=== PATIENT | female | born 1945 | race Caucasian/White ===

== ENCOUNTER → 2018-06-29 | Outpatient (CLI) | payer MEDICARE | LOC: M WHC 08:45 | DX: Z12.31 Encounter for screening mammogram for malignant neoplasm of breast (principal); Z78.0 Asymptomatic menopausal state | CPT/HCPCS: 77067 ==

== ENCOUNTER → 2019-07-02 | Outpatient (CLI) | payer MEDICARE ==
[2019-07-02 12:24] LABS: BLOOD UREA NITROGEN 18 MG/DL (7-18); CALCIUM LEVEL 9.4 MG/DL (8.8-10.2); CARBON DIOXIDE LEVEL 28 MEQ/L (21-32); CHLORIDE LEVEL 107 MEQ/L (98-107); CREATININE FOR GFR 0.76 MG/DL (0.55-1.30); GLOMERULAR FILTRATION RATE > 60.0 (>39); GLUCOSE, FASTING 84 MG/DL (70-100); POTASSIUM SERUM 4.4 MEQ/L (3.5-5.1); SODIUM LEVEL 140 MEQ/L (136-145)
== END ==
LOC: M LAB 10:23
PROVIDERS: ATTEND Orthopaedic Surgery
DX: G56.01 Carpal tunnel syndrome, right upper limb (principal)

== ENCOUNTER → 2019-11-01 | Outpatient (REF) | payer MEDICARE | LOC: M LAB REF 16:21 | PROVIDERS: ATTEND Nurse Practitioner Family | DX: R30.0 Dysuria (principal) ==

== ENCOUNTER → 2020-06-19 | Outpatient (CLI) | payer MEDICARE ==
--- NOTE | 2020-06-24 07:50 | REP ---
BILATERAL SCREENING MAMMOGRAM WITH 3D TOMOSYNTHESIS COMPARISON MAMMOGRAM: 06/29/2018, as well as other prior exams. HISTORY: No family history of breast cancer. Tyrer-Cuzick lifetime risk of breast cancer 2.1%. TECHNIQUE: MLO and CC views of both breast performed with tomosynthesis. FINDINGS: There is mild heterogeneous fibroglandular tissue again seen bilaterally. Volpara breast density is B. Intramammary lymph node is again seen in the upper outer quadrant of the left breast postoperatively. New irregular nodular density is seen in the region of the left axillary tail on the MLO view with adjacent linear ductal type calcifications, which are also new. Otherwise, no new mass or clustered microcalcifications are seen bilaterally. IMPRESSION: ACR 0 incomplete. New irregular 7 mm nodular density in the region of the left axillary tail with adjacent linear ductal calcifications, which are also new. These are only seen on the MLO projection. Recommend spot compression magnification views of the left breast in the axillary, CC, MLO, and ML projects. This mammogram was interpreted with the aid of an FDA approved computer-aided detection system. The patient states her last clinical breast exam was over one year ago. Patient letter: 0. MTDD
== END ==
LOC: M WHC 09:08
PROVIDERS: ATTEND Internal Medicine
DX: Z12.31 Encounter for screening mammogram for malignant neoplasm of breast (principal); N63.32 Unspecified lump in axillary tail of the left breast

== ENCOUNTER → 2020-07-14 | Outpatient (CLI) | payer MEDICARE ==
--- NOTE | 2020-07-14 16:50 | REP ---
INDICATION: ADDITIONAL VIEWS LT BREAST. COMPARISON: 06/19/2020. TECHNIQUE: Spot compression magnification views of the left breast are performed in the posterior upper outer quadrant. Focused left breast ultrasound also performed at that location. FINDINGS: An irregular nodule is confirmed in the upper-outer quadrant of left breast posteriorly, in the region of the axillary tail. Approximate diameter 7 mm. There adjacent suspicious pleomorphic ductal type calcifications extending superior and lateral from the irregular nodule. These calcifications are also suspicious. Ultrasound of the left axillary tail region approximately 10 cm from the nipple, at 1 o'clock, demonstrates a hypoechoic nodule with distal Q 6 shadowing measuring 5 mm in diameter. This is felt to correspond to the mammographic abnormality. IMPRESSION: BIRADS/ACR category 4 suspicious. Irregular nodule confirmed in the left axillary tail region approximately 10 cm from the nipple, both mammographically and sonographically. By mammography there also adjacent pleomorphic ductal type calcifications extending superior and lateral to the nodule. Recommend ultrasound-guided biopsy of the nodule, with samples also obtained of the adjacent soft tissue just superolateral to the nodule. Recommend postprocedure mammogram. Recommend postprocedure specimen radiograph to determine if calcifications are also sampled during the ultrasound-guided biopsy. This mammogram was interpreted with the aid of an FDA-approved computer-aided detection system. The patient letter being requested is M4. RECOMMENDATION: Recommend ultrasound-guided biopsy left breast. <Electronically signed by Isai Santos > 07/14/20 [id number]
== END ==
LOC: M WHC 14:52
PROVIDERS: ATTEND Internal Medicine
DX: Z12.39 Encounter for other screening for malignant neoplasm of breast (principal); N64.0 Fissure and fistula of nipple

== ENCOUNTER → 2020-08-21 | Outpatient (CLI) | payer MEDICARE ==
[~2020-08-21] MED LIST: AMLO25TA PO; CALCTAB41 PO; CENT1TAB PO; DERM1TAB2 PO
--- NOTE | 2020-08-21 16:44 | REP ---
INDICATION: R952.8 ABN MAMMOGRAM,US GUIDED BIOPSY. COMPARISON: 06/19/2020 and 07/14/2020. TECHNIQUE: Specimen radiograph performed. FINDINGS: Following ultrasound-guided biopsy of a nodule and adjacent microcalcifications in the upper-outer quadrant of the left breast a specimen area graft shows it least 4 calcifications within the specimens. IMPRESSION: Successful ultrasound-guided biopsy of irregular nodule and adjacent ductal type calcifications in the upper outer quadrant of the left breast. RECOMMENDATION: Clinical follow-up. <Electronically signed by Isai Santos > 08/21/20 1640
--- NOTE | 2020-08-21 16:51 | REP ---
INDICATION: R952.8 ABN MAMMOGRAM LT BREAST,US GUIDED BIOPSY. COMPARISON: None. TECHNIQUE: The procedure was performed under the general supervision of Dr. Santos. The patient has a history of an irregular nodule in the left axillary tail region approximately 10 cm from the nipple seen on a previous ultrasound dated 07/14/2020. Mammogram performed on the same day demonstrates pleomorphic ductal type calcifications extending superior and lateral to the nodule. The risks and benefits of the procedure were explained to the patient and informed consent was obtained. The left breast nodule was localized using ultrasound guidance. The skin was prepped and draped in a sterile fashion. 1% lidocaine was used as a local anesthetic. Using ultrasound guidance a 14 gauge coaxial needle biopsy system was inserted and 5 core biopsy samples were obtained in the tissue superior and lateral to the nodule. Specimen radiograph demonstrates the presence of calcifications to be within the specimen. Six core biopsy samples were then obtained of the nodule. A marker clip was placed at the biopsy site. The patient tolerated the procedure well and there were no immediate complications. After the appropriate amount to monitor convalescence the patient was discharged from the department. FINDINGS: None IMPRESSION: Technically successful ultrasound-guided left breast biopsy with marker clip placement. <Electronically signed by Greg Moreno > 08/21/20 1633 <Electronically signed by Isai Santos > 08/21/20 [id number]
[2020-08-21 17:36] VITALS: BP 128/66
--- NOTE | 2020-08-25 08:16 | REP ---
INDICATION: R952.8 ABN MAMMOGRAM,US GUIDED BIOPSY. Clip marker placement views. COMPARISON: July 14, 2020. TECHNIQUE: CC, lateral exaggerated CC, and MLO views of the left breast were obtained after stereotactic needle biopsy procedure was performed. This mammogram was interpreted with the aid of an FDA-approved computer-aided detection system. FINDINGS: The target micro calcific grouping persists in the upper outer quadrant of the left breast although there appear to be few or microcalcifications. The marker clip is in good position. There is some adjacent postprocedure soft tissue edema. No hematoma is seen. The Volpara volumetric breast density pattern is B. IMPRESSION: Marker clip in good position adjacent to the remaining microcalcifications in the target grouping. This patient's Tyrer-Cuzick lifetime breast cancer risk assessment score is 2.1%. RECOMMENDATION: Correlation with histologic results.. <Electronically signed by Jarek Richardson > 08/25/20 0886
== END ==
LOC: M WHCPRO 14:39
PROVIDERS: ATTEND Surgery
DX: D05.12 Intraductal carcinoma in situ of left breast (principal); R92.8 Other abnormal and inconclusive findings on diagnostic imaging of breast

== ENCOUNTER → 2020-08-28 | Outpatient (REF) | payer MEDICARE ==
[2020-08-28 16:21] LABS: BLOOD UREA NITROGEN 16 MG/DL (7-18); CALCIUM LEVEL 9.3 MG/DL (8.8-10.2); CARBON DIOXIDE LEVEL 29 MEQ/L (21-32); CHLORIDE LEVEL 104 MEQ/L (98-107); CREATININE FOR GFR 0.91 MG/DL (0.55-1.30); GLOMERULAR FILTRATION RATE > 60.0 (>39); GLUCOSE, FASTING 105 MG/DL (70-100); POTASSIUM SERUM 4.1 MEQ/L (3.5-5.1); SODIUM LEVEL 139 MEQ/L (136-145)
== END ==
LOC: M PLALAB 12:32
PROVIDERS: ATTEND Surgery
DX: C50.412 Malignant neoplasm of upper-outer quadrant of left female breast (principal)

== ENCOUNTER → 2020-08-29 | Outpatient (CLI) | payer MEDICARE ==
[~2020-08-29] MED LIST changes: +AMLO1TAB25 PO; +MAGN400C2 PO; +PREVISION PO; +PROHANCE 279.3MG/ML 15ML VIAL As Ordered ONE; +PROHANCE 279.3MG/ML 5ML VIAL As Ordered ONE
--- NOTE | 2020-08-29 17:48 | REP ---
INDICATION: MALIGNANT NEOPLASM OF BREAST. Malignant neoplasm upper outer quadrant of the left breast. COMPARISON: Comparison mammography July 14, 2020. Patient is status post ultrasound-guided breast biopsy August 21, 2020. TECHNIQUE: Three Teri MRI imaging was performed with a dedicated breast coil. Axial, coronal, and sagittal T1 and T2 weighted scans were obtained with and without fat saturation in the usual fashion. The study includes dynamically acquired post gadolinium-enhanced imaging with image subtraction. Maximum intensity projection and multi planar reformation imaging is included as well. This study is interpreted with the aid of [employer], an FDA approved computer aided detection (CAD) software program, on a dedicated breast MRI workstation. The gadolinium enhancement dose is 16 mL of intravenous ProHance. FINDINGS: There is a HydroMARK needle biopsy marker device is visible in the left breast posterior 3rd at approximately 12 o'clock position. No evidence of breast cystic change. No axillary lymphadenopathy is observed on either side. There is a 7 mm area of enhancement adjacent to the HydroMARK marker clip in the left breast. This corresponds to the biopsied lesion. It shows a heterogeneous contrast enhancement with washout. No other suspicious area of enhancement and/or washout is seen in either breast on dynamic post-contrast images. No other significant morphologic abnormality is seen on either side. There is a small lymph node visible laterally on the left but this does not appear enlarged. This is visible on mammography. It measures 6 mm. Mammographically, this lymph node is felt to be unchanged from the comparison mammogram study done June 28, 2016. IMPRESSION: BI-RADS category 6 known left breast malignancy. 7 mm irregular enhancing nodule at the site of the biopsy. Stable ipsilateral intramammary lymph node. No other suspicious target identified on MRI study in either breast or in either axilla. <Electronically signed by Jarek Richardson > 08/29/20 [id number]
== END ==
LOC: M RAD 15:04
PROVIDERS: ATTEND Surgery
DX: C50.412 Malignant neoplasm of upper-outer quadrant of left female breast (principal)
CPT/HCPCS: A9576; C8908

== ENCOUNTER → 2020-09-02 | Outpatient (REF) | payer MEDICARE ==
[~2020-09-02] MED LIST changes: -PROHANCE 279.3MG/ML 15ML VIAL As Ordered ONE; -PROHANCE 279.3MG/ML 5ML VIAL As Ordered ONE
[2020-09-02 15:52] LABS: HEMATOCRIT 41.7 % (36.0-47.0); HEMOGLOBIN 13.3 g/dl (12.0-15.5); MEAN CORPUSCULAR HEMOGLOBIN 29.2 pg (27.0-33.0); MEAN CORPUSCULAR HGB CONC 31.9 g/dl (32.0-36.5); MEAN CORPUSCULAR VOLUME 91.6 fl (80.0-96.0); PLATELET COUNT, AUTOMATED 318 10^3/uL (150-450); RED BLOOD COUNT 4.55 10^6/uL (4.00-5.40); WHITE BLOOD COUNT 6.8 10^3/uL (4.0-10.0)
[2020-09-02 16:27] LABS: ALBUMIN 4.2 GM/DL (3.2-5.2); ALT/SGPT 30 U/L (12-78); BILIRUBIN,TOTAL 0.3 MG/DL (0.2-1.0); BLOOD UREA NITROGEN 16 MG/DL (7-18); CALCIUM LEVEL 9.5 MG/DL (8.8-10.2); CARBON DIOXIDE LEVEL 29 MEQ/L (21-32); CHLORIDE LEVEL 104 MEQ/L (98-107); CREATININE FOR GFR 0.76 MG/DL (0.55-1.30); GLOMERULAR FILTRATION RATE > 60.0 (>39); GLUCOSE, FASTING 93 MG/DL (70-100); POTASSIUM SERUM 4.4 MEQ/L (3.5-5.1); SODIUM LEVEL 138 MEQ/L (136-145); TOTAL PROTEIN 7.7 GM/DL (6.4-8.2)
== END ==
LOC: M PLALAB 12:22
PROVIDERS: ATTEND Surgery
DX: Z01.818 Encounter for other preprocedural examination (principal); Z79.899 Other long term (current) drug therapy; M85.88 Other specified disorders of bone density and structure, other site

== ENCOUNTER → 2020-09-02 | Outpatient (CLI) | payer MEDICARE ==
--- NOTE | 2020-09-02 14:07 | REPPI ---
INDICATION: Z01.818 PRE OP EVALUATION COMPARISON: None. TECHNIQUE: PA and lateral. FINDINGS: The mediastinum and cardiac silhouette are normal. Tortuous thoracic aorta is suggested. Lung cox demonstrate chronic emphysematous changes. No consolidation, effusion, or pneumothorax. Skeletal structures demonstrate age-related osteopenia and degenerative changes. IMPRESSION: Chronic changes. No acute cardiopulmonary process appreciated. <Electronically signed by Sabas Valentin > 09/02/20 3900
== END ==
LOC: M PLAIMG 12:22
PROVIDERS: ATTEND Surgery
DX: Z01.818 Encounter for other preprocedural examination (principal); Z79.899 Other long term (current) drug therapy

== ENCOUNTER → 2020-09-11 | Outpatient (CLI) | payer MEDICARE | LOC: M LABSMTC 13:11 | PROVIDERS: ATTEND Anesthesiology | DX: Z01.812 Encounter for preprocedural laboratory examination (principal); Z20.828 Contact with and (suspected) exposure to other viral communicable diseases ==

== ENCOUNTER 2020-09-16 10:23 | Day surgery (SDC) | payer MEDICARE ==
[~2020-09-16] VITALS: Ht 172.7 cm; Wt 83.9 kg
[~2020-09-16 10:23] MED LIST changes: +LR 1,000 ML IV ONE
[2020-09-16] MEDS ORDERED: HEPARIN SOD (PORCINE) 5000UNITS/ML 1ML VIAL/SYRINGE SQ ONE (10:45)
[2020-09-16] MEDS ORDERED: ceFAZolin SOD 2 GM in IV 1 EA IV ONE (11:00)
[2020-09-16] MEDS ORDERED: dexameTHASONE 4 MG/ML 1ML VIAL (J1100 PER 1MG) As Ordered ONE (11:41)
[2020-09-16] MEDS ORDERED: ONDANSETRON 4MG/2ML VIAL As Ordered ONE (11:41)
[2020-09-16] MEDS ORDERED: propofoL 200 MG/20 ML VIAL As Ordered ONE (11:41)
[2020-09-16] MEDS ORDERED: LIDOCAINE 2% 100MG/5ML SDV (FOR ANES.) As Ordered ONE (11:41)
[2020-09-16] MEDS ORDERED: fentaNYL 100 MCG/2 ML INJECTION (J3010) As Ordered ONE ×3 (11:42→17:51)
[2020-09-16] MEDS ORDERED: MIDAZOLAM INJ 2MG/2ML VIAL (J2250 PER 1MG) As Ordered ONE (11:42)
[2020-09-16] MEDS ORDERED: LIDOCAINE 1% SDV 30ML VIAL As Ordered ONE (13:16)
[2020-09-16] MEDS ORDERED: BUPIVACAINE HCL 0.25% 30ML VIAL As Ordered ONE (13:17)
[2020-09-16] MEDS ORDERED: ePHEDrine SULFATE 25 MG/5 ML(5MG/ML) SYRINGE As Ordered ONE (13:51)
--- NOTE | 2020-09-16 14:21 | REP ---
INDICATION: LEFT BREAST CA. COMPARISON: None. TECHNIQUE/RADIOTRACER AND DOSE: This procedure was performed by Eunice Aguila [facility], under the direct supervision of Dr. Santos. Images were reviewed with Dr. Santos prior to dictation. The risks and benefits of the procedure were explained to the patient and informed consent was obtained both orally and written. Directly prior to the start of the procedure, a formal timeout was done in the exam room. Using topical anesthetic and sterile technique 1.025 mCi of filtered Technetium-99m sulfur colloid was injected subdermally in 8 fractionated periareolar injections. FINDINGS: Images obtained 1 hour after injection show 2 dominant foci in the left axilla. IMPRESSION: There are 2 dominant foci in the left axilla. <Electronically signed by Eunice Aguila > 09/16/20 1343 <Electronically signed by Isai Santos > 09/16/20 141
[2020-09-16] MEDS ORDERED: ACETAMINOPHEN 1000MG 100ML IV BTL (OFIRMEV) (J0131 PER 10MG) As Ordered ONE ×2 (15:34→20:29)
--- NOTE | 2020-09-16 16:00 | REP ---
INDICATION: LEFT BREAST BIOPSY. 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 Comparison mammography August 21, 2020. COMPARISON: Comparison mammography August 21, 2020.. TECHNIQUE: Single-view. FINDINGS: Specimen radiograph demonstrates a needle biopsy marker clip and the suspicious microcalcifications adjacent to the Kopan's localizer wire in the central portion of the specimen. IMPRESSION: The micro calcific grouping appears within the excised specimen. Findings were discussed with Dr. Payton by telephone at the time of the exam. <Electronically signed by Jarek Richardson > 09/16/20 [id number]
--- NOTE | 2020-09-16 16:06 | REP ---
INDICATION: LEFT BREAST BIOPSY. COMPARISON: Ultrasound 08/21/2020. TECHNIQUE: Ultrasound guidance provided for Dr. Payton for wire localization. FINDINGS: Ultrasound guidance was provided for Dr. Payton for wire localization of a HydroMARK clip in the left breast in the region of 2 o'clock. IMPRESSION: Ultrasound guidance provided for wire localization left breast biopsy clip. <Electronically signed by Iasi Santos > 09/16/20 0703
[2020-09-16] MEDS ORDERED: ULTR50TA8 PO (16:53)
[2020-09-16] MEDS ORDERED: fentaNYL 100 MCG/2 ML INJECTION (J3010) IV PRN (18:00)
[2020-09-16] MEDS ORDERED: ONDANSETRON 4MG/2ML VIAL IV PRN (18:00)
[2020-09-16] MEDS ORDERED: LR 1,000 ML IV SCH (18:00)
[2020-09-16] MEDS ORDERED: NORCO, ANEXSIA 5/325MG TABLET (HYDROcodone/ACETAMINOPHEN) PO PRN (18:00)
[2020-09-16 18:05] VITALS: BP 130/67
--- NOTE | 2020-09-17 19:06 | ROOPDOC ---
[facility] Report Of Operation Report of Operation DATE OF PROCEDURE: 09/17/20 PREPROCEDURE DIAGNOSES: Left breast cancer POSTPROCEDURE DIAGNOSES: Left breast cancer PROCEDURE: Left breast lumpectomy with Intra-Op wire placement, Intra-Op specimen radiography, left axillary sentinel lymph node biopsy SURGEON: Ronak Devine ANESTHESIA: General ESTIMATED BLOOD LOSS: Approximately 25 mL. COMPLICATIONS: None REMARKS: The wire, the clip, the nodule and pleomorphic calcifications were identified in the specimen DESCRIPTION OF PROCEDURE: INDICATIONS: Ms. Whitehead is a 75-year-old woman who was found to have a suspicious nodule with associated calcifications on screening mammogram. This was evaluated with US and sonographic correlate was found for the nodule. Biopsy of the tissue superiorly and laterally was also recommended to evaluate the area of calcifications. 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 Patient opted for breast conservative surgery with sentinel lymph node biopsy on the left. I have discussed with the patient the Choosing Wisely campaign recommendations prior to her deciding to pursue sentinel lymph node biopsy. She was medically cleared for surgery by her primary care doctor. Risks and possible complications of surgical procedure including bleeding, infection and injury to surrounding structures were explained to the patient and she wished to proceed. Consent was signed. My initials were placed on the operative site. Subcutaneous injection of 5000 units of heparin was done in Preop. The injection of radioactive tracer was done in radiology department preoperatively. Lymphoscintigraphy imaging was reviewed in preop. DETAILS: Patient was taken to the operating room and placed on the operating room table. A sign in was called stating patients name, date of and the procedure to be done. Preoperative antibiotics were infused. Smooth induction of general anesthesia was done. Patients hands were extended on arm rests. Care was taken not to over extend the arms. Pillow was placed under the knees and a foam was placed under the heels. Sequential compression devices were placed and assured to function correctly. Procedure was started with left breast intraop wire localization. Appropriate time out was done and patients name, date of , and the procedure to be done were confirmed. Left breast was cleaned by me. Intraoperative ultrasound was used to confirm location of the Hydromark clip. Location of the clip was marked on the skin as well. 21 G Kopans Breast Lesion Localization Needle was used to place 25 cm wire through the lesion. The wire was placed next to the clip and the end of the wire was passed a centimeter deep. The images were captured confirming adequate placement of the localizing wire. Supply Controller assisted with the wire placement. Next, patients left breast and axilla were prepped and draped in the usual fas hion. Care was taken not to displace the wire. Appropriate time out was done again prior second part of the procedure. Patients name, date of , and the procedure to be done were confirmed. Procedure was started with sentinel lymph node biopsy. Neoprobe was used to locate area of maximum intensity of the signal. Local anesthetic using 1% lidocaine and 0.25 % Marcaine 50/50 mix was injected. An incision was made with scalpel number 15 at the inferior aspect of axillary hair line in the left axilla where the maximum signal was identified. The sharp and blunt dissection was continued through the subcutaneous adipose tissue. Clavipectoral fascia was opened. Neoprobe was used to guide the dissection. First sentinel lymph node was identified and excised. The ex-vivo 10 second count was 00646. This node was in mid axilla and was very long in A/P direction. Second sentinel lymph node was identified in deep/ posterior axilla and excised as well. The ex-vivo 10 second count was 5882. The specimens were labeled with patients name and sent to pathology. No additional lymph nodes with high radioactive signal were identified. The 10 second count of the background was 389. Adequate hemostasis was assured. Additional local anesthetic was injected into surrounding tissues. Wound was irrigated. Next, our attention was turned toward the left breast and the localizing wire. The previous left axillary incision was used to access the breast and the wire. Subcutaneous skin flaps were raised and the guide wire was carefully pulled into the wound. Dissection was carries along the wire until the previously marked on the skin area of the nodule and the clip. Since the calcifications were seen on mammogram superiorly and laterally to the nodule/ clip, the dissection area was kept reasonably wide The Hydromark clip was identified in the tissue with intraoperative hockey stick ultrasound probe. The end of the wire was identified with palpation. The lumpectomy specimen was carefully removed from the breast keeping its proper orientation and moved to the back table where margins were marked with the surgical inking kit following the standard colors recommendations. Specimen was then placed on the grid and placed in [employer] Specimen Imaging System. The image revealed the nodule with pleomorphic calcifications, the wire and the Hydromark in the specimen. The specimen was labeled with patients name and left l umpectomy and sent to pathology. At this time radiology department was called to aid with evaluation of excised specimen. No additional excision was recommended. Next, four additional margins were taken: inferior, superior, medial, anterior and lateral. All new margins, defined as margin farthest away from lumpectomy cavity, were marked with black ink. Each margin was sent as a separate specimen with appropriate labeling. Deep margin was not taken as the dissection was all the way to the muscle. The anterior margin was not taken as the lesion was felt to be deep and lumpectomy anterior margin was felt to be appropriate. Wound was thoroughly irrigated. Adequate hemostasis was assured. Additional local anesthetic was injected into surrounding tissues. Clips were placed to yosvany the cavity. space was approximated with 2-0 Vicryl. The dermis was closed with 3-0 Monocryl and skin was closed with 4-0 Monocryl. Surgical glue was placed over the incision. Patient emerged from the anesthesia without any problems. Fluffs were placed over the operative site and patients chest was wrapped snuggly in the SRIDHAR wrap. Sponge and instrument counts were done and were correct. Patient tolerated procedure well and was taken to recovery unit in stable condition. RONAK DEVINE DO Sep 17, 2020 19:06
== END 2020-09-16 18:10 | disposition home or self-care (01) ==
LOC: M SDC 10:23
PROVIDERS: ATTEND Surgery
DX: C50.912 Malignant neoplasm of unspecified site of left female breast (principal); Z17.0 Estrogen receptor positive status [ER+]; I10 Essential (primary) hypertension; Z79.899 Other long term (current) drug therapy
CPT/HCPCS: 19125; 36415; 38525; 76942; 78195; 86850; 86900; 86901; 88305; 88307; 88342; A9541; J0131; J0690; J1100; J1644; J2250; J2405; J3010

== ENCOUNTER → 2020-10-01 | Outpatient (CLI) | payer MEDICARE ==
[~2020-10-01] MED LIST changes: +CALC600T57 PO; +LETR2.5T2 PO; -LR 1,000 ML IV ONE; +PRES10CA2 PO; +ULTR50TA8 PO
--- NOTE | 2020-10-01 15:10 | DEXAMM ---
INDICATION: BREAST CA, ON AI. COMPARISON: Comparison study May 29, 2008. November 22, 2002 and June 04, 1998 prior studies.. TECHNIQUE: Bone density was measured using dual-energy x-ray absorptionmetry (DEXA). FINDINGS: AP SPINE L1-L4 BMD 1.036 g/cm2 Young Adult T-Score -1.3 Age Matched Z-Score 0.5. LT FEMUR, TOTAL BMD 0.870 g/cm2 Young Adult T-Score -1.1 Age Matched Z-Score 0.8. LT NECK BMD 0.861 g/cm2 Young Adult T-Score -1.3 Age Matched Z-Score 0.8. RT FEMUR, TOTAL BMD 0.892 g/cm2 Young Adult T-Score -0.9 Age Matched Z-Score 0.9. RT NECK BMD 0.841 g/cm2 Young Adult T-Score -1.4 Age Matched Z-Score 0.6. IMPRESSION: There is low bone density of the spine. There is low bone density of the left hip. There is low bone density of the right hip. The density of the spine has decreased 12.5% since the initial exam on June 04, 1998. The density of the spine decreased 13.5% since most recent exam on May 29, 2008. The density of the left hip has decreased 21.3% since initial exam on June 04 1998. The density of the left hip has decreased 19.0% since most recent exam on May 29, 2008. The density of the right hip has decreased 13.6% since the initial exam on November 22, 2002. The density of the right hip has decreased 10.1% since the most recent exam on May 29, 2008. FOLLOW-UP: Recommendation for the next bone density exam: 2 years. <Electronically signed by Jarek Richardson > 10/01/20 [id number]
== END ==
LOC: M WHC 13:48
PROVIDERS: ATTEND Internal Medicine Medical Oncology
DX: C50.919 Malignant neoplasm of unspecified site of unspecified female breast (principal); Z79.899 Other long term (current) drug therapy; M85.88 Other specified disorders of bone density and structure, other site; M85.851 Other specified disorders of bone density and structure, right thigh; M85.852 Other specified disorders of bone density and structure, left thigh

== ENCOUNTER → 2021-07-23 | Outpatient (CLI) | payer MEDICARE ==
[~2021-07-23] MED LIST changes: +COVI100V IM; +CVS1CAP2 PO
--- NOTE | 2021-07-23 11:53 | REPMRS ---
Patient History The patient states she had a clinical breast exam in February 2021. No known family history of cancer. Radio exam Breast Specimen of the left breast, September 16, 2020. Malignant US guided breast biopsy. of the left breast, August 21, 2020. Malignant radio exam breast specimen. of the left breast, August 21, 2020. No Hormone Replacement Therapy Tomosynthesis is performed. Volpara breast density is b. Diagnostic Bilateral Mammo: July 23, 2021 - Exam #: [id number] Bilateral CC and MLO view(s) were taken. Technologist: Kelsie Chavarria, Technologist Prior study comparison: August 21, 2020, left breast diagnostic unilateral mammo performed at [facility]. July 14, 2020, left breast diagnostic unilateral mammo performed at [facility]. FINDINGS: The breast tissue is heterogeneously dense. This may lower the sensitivity of mammography. There has been no change in the appearance of the mammogram from the prior studies. There is a moderate amount of residual fibroglandular tissue which is fairly symmetric. There is no interval development of dominant mass, areas of architectural distortion, or clustered microcalcification typical of malignancy. Assessment: BI-RADS/ACR category 1 mammogram. Negative Mammogram. Recommendation Routine screening mammogram in 1 year (for women over age 40). This mammogram was interpreted with the aid of an FDA-approved computer-aided dectection system. Electronically Signed By: Isai Santos MD 07/23/21 8290
== END ==
LOC: M WHC 10:47
PROVIDERS: ATTEND Surgery
DX: C50.412 Malignant neoplasm of upper-outer quadrant of left female breast (principal)
CPT/HCPCS: 77066; G0279

== ENCOUNTER → 2022-06-02 | Outpatient (CLI) | payer MEDICARE ==
[~2022-06-02] MED LIST changes: +RA T500C2 PO
[2022-06-02 08:17] LABS: HEMATOCRIT 40.1 % (36.0-47.0); MEAN CORPUSCULAR HEMOGLOBIN 29.8 pg (27.0-33.0); MEAN CORPUSCULAR HGB CONC 32.4 g/dl (32.0-36.5); PLATELET COUNT, AUTOMATED 276 10^3/uL (150-450); RED BLOOD COUNT 4.36 10^6/uL (4.00-5.40); WHITE BLOOD COUNT 4.4 10^3/uL (4.0-10.0)
[2022-06-02 08:43] LABS: BLOOD UREA NITROGEN 16 MG/DL (7-18); CALCIUM LEVEL 9.6 MG/DL (8.8-10.2); CARBON DIOXIDE LEVEL 30 MEQ/L (21-32); CHLORIDE LEVEL 105 MEQ/L (98-107); CREATININE FOR GFR 0.72 MG/DL (0.55-1.30); GLOMERULAR FILTRATION RATE > 60.0 (>39); GLUCOSE, FASTING 96 MG/DL (70-100); POTASSIUM SERUM 4.4 MEQ/L (3.5-5.1); SODIUM LEVEL 136 MEQ/L (136-145)
== END ==
LOC: M LAB 07:13
PROVIDERS: ATTEND Internal Medicine
DX: I10 Essential (primary) hypertension (principal)

== ENCOUNTER → 2022-07-30 | Outpatient (CLI) | payer MEDICARE | LOC: M WHC 12:27 | PROVIDERS: ATTEND Nurse Practitioner Women's Health | DX: C50.412 Malignant neoplasm of upper-outer quadrant of left female breast (principal); Z17.0 Estrogen receptor positive status [ER+] | CPT/HCPCS: 77066; G0279 ==

== ENCOUNTER → 2022-10-04 | Outpatient (CLI) | payer MEDICARE | LOC: M WHC 10:54 | PROVIDERS: ATTEND Internal Medicine Medical Oncology | DX: M85.88 Other specified disorders of bone density and structure, other site (principal); M85.851 Other specified disorders of bone density and structure, right thigh; M85.852 Other specified disorders of bone density and structure, left thigh ==

== ENCOUNTER → 2022-12-27 | Outpatient (CLI) | payer MEDICARE ==
[2022-12-27 13:22] LABS: BLOOD UREA NITROGEN 14 MG/DL (9-23); CALCIUM LEVEL 9.3 MG/DL (8.3-10.6); CARBON DIOXIDE LEVEL 29 MMOL/L (20-31); CHLORIDE LEVEL 106 MMOL/L (98-107); CREATININE FOR GFR 0.62 MG/DL (0.55-1.30); GLOMERULAR FILTRATION RATE > 60.0 (>39); GLUCOSE, FASTING 84 MG/DL (74-106); POTASSIUM SERUM 4.4 MMOL/L (3.5-5.1); SODIUM LEVEL 141 MMOL/L (136-145)
== END ==
LOC: M WUC 11:04
PROVIDERS: ATTEND Internal Medicine
DX: I10 Essential (primary) hypertension (principal)

== ENCOUNTER → 2023-08-01 | Outpatient (CLI) | payer MEDICARE ==
[~2023-08-01] MED LIST changes: +REFR0.5D8 OP
== END ==
LOC: M WHC 12:29
PROVIDERS: ATTEND Nurse Practitioner Women's Health
DX: C50.412 Malignant neoplasm of upper-outer quadrant of left female breast (principal)
CPT/HCPCS: 77066; G0279

== ENCOUNTER → 2024-08-15 | Outpatient (CLI) | payer MEDICARE | LOC: M WHC 08:39 | PROVIDERS: ATTEND Internal Medicine Hematology & Oncology | DX: Z12.31 Encounter for screening mammogram for malignant neoplasm of breast (principal); R92.323 Mammographic fibroglandular density, bilateral breasts | CPT/HCPCS: 77066; G0279 ==

== ENCOUNTER → 2024-11-05 | Outpatient (CLI) | payer MEDICARE | LOC: M WHC 09:55 | PROVIDERS: ATTEND Internal Medicine Hematology & Oncology | DX: Z13.820 Encounter for screening for osteoporosis (principal); Z85.3 Personal history of malignant neoplasm of breast; M85.88 Other specified disorders of bone density and structure, other site; M85.852 Other specified disorders of bone density and structure, left thigh; M85.851 Other specified disorders of bone density and structure, right thigh ==

== ENCOUNTER → 2025-08-21 | Outpatient (CLI) | payer MEDICARE ==
[~2025-08-21] MED LIST changes: -RA T500C2 PO; +TURM500C10 PO
== END ==
LOC: M WHC 09:52
PROVIDERS: ATTEND Internal Medicine Medical Oncology
DX: Z85.3 Personal history of malignant neoplasm of breast (principal)
CPT/HCPCS: 77066; G0279